=== PATIENT | female | born 1930 | race Caucasian/White ===

== ENCOUNTER 2016-04-23 17:52 | Observation (INO) | payer MEDICARE ==
[2016-04-23 18:43] LABS: Hematocrit 41.1 % (37.0-47.0); Hemoglobin 13.6 gm/dL (12.5-16.0); Mean Cell Volume 92.8 fl (78-100); Mean Corpuscular Hemoglobin 30.7 pg (27-31); Mean Corpuscular Hgb Conc 33.1 g/dl (32-36); Mean Platelet Volume 9.5 fl (6.0-9.5); Neutrophil % 66.4 % (42-75.0); Platelet Count 131 K/mm3 (150-450); Red Blood Count 4.43 M/mm3 (4.2-5.4); Red Cell Distribution Width 11.9 % (11.5-14.0); White Blood Count 6.1 K/mm3 (4.0-10.5)
[2016-04-23 19:17] LABS: Albumin * 3.4 gm/dl (3.4-5.0); Anion Gap 7.7 mmol/L (6.8-13.8); Bilirubin, Total 0.4 mg/dL (0.0-1.1); Ca. Corrected For Albumin 9.4 mg/dL (8.4-10.2); Calcium * 9.2 mg/dL (7.9-10.9); Carbon Dioxide 33.8 mmol/L (24-32.6); Potassium 4.5 mmol/L (3.4-4.6); Total Protein 7.6 gm/dL (6.2-8.2)
--- NOTE | 2016-04-23 20:19 | ERNOTE ---
Dyspnea - Date Date of Service: 04/23/16 - General Presenting Symptoms: shortness of breath Time Seen by Provider: 04/23/16 18:12 Source: patient, family - Immun/Allergies/Home Medications Immunizations: IMMUNIZATION HX Immunizations Up to Date Yes History of Influenza Vaccine Yes Hx Pneumococcal Vaccination Yes Allergies/Adverse Reactions: Allergies No Known Allergies Allergy (Verified 10/22/15 15:49) Home Medications: HOME MEDICATIONS Apixaban [Eliquis] 5 mg PO BID 01/06/16 [Last Taken Unknown] Carvedilol [Coreg] 12.5 mg PO BID 01/06/16 [Last Taken Unknown] Cholecalciferol [Vitamin D] 2,000 unit PO BID 01/06/16 [Last Taken Unknown] Digoxin [Lanoxin] 0.125 mg PO MOWEFR 01/06/16 [Last Taken Unknown] Famotidine [Pepcid AC] 20 mg PO DAILY 01/06/16 [Last Taken Unknown] Glimepiride [Amaryl] 2 mg PO BID 01/06/16 [Last Taken Unknown] Guaifenesin/Pseudoephedrne HCl [Mucinex D ER 1,200-120 mg Tab] 1 tab PO Q12H [Last Taken Unknown] Montelukast Sodium [Singulair] 10 mg PO DAILY 01/06/16 [Last Taken Unknown] Oxybutynin Chloride [Ditropan] 5 mg PO TID 01/06/16 [Last Taken Unknown] Lisinopril [Zestril] 10 mg PO DAILY #30 tablet 01/08/16 [Last Taken Unknown] - History of Present Illness Narrative: Rachana is a 85 year old female brought to the ED by her grandchildren for shortness of breath that was first noticed yesterday. She denies any increased coughing or not feeling well. Her home health nurse even noticed today that she seemed to be more dyspneic than her usual. This has went on throughout the day and has not seemed to improve with her breathing treatments, so her family brought her in to be evaluated. She wears 2 L of oxygen at home. Her oxygen saturation is currently 95% with this. She was treated for a COPD exacerbation with a prednisone taper and ZPack on . At that time she did have increased coughing and nasal congestion with her O2 Sat being 88% in the office that day. Date (Duration): 04/22/16 Treatment PASTE UP ARTIST APPRENTICE: by patient, albuterol Initiating event: Reports: unknown, other - patient denies being short of breath but cannot speak in complete sentences Associated Symptoms-Dyspnea: Reports: wheezing. Denies: fever/chills, chest pain/discomfort, cough, leg/calf pain, ankle/leg swelling, dizziness, lightheadedness, loss of appetite Prior Treatment: Reports: previous episodes. Denies: recently seen, treated by physician, currently on antibiotics Review of Systems - Review of Systems Constitutional: Present: recent illness. Absent: fever, chills, malaise EYE: Present: no symptoms reported ENT: Present: nose congestion. Absent: ear pain, nasal drainage, sore throat Respiratory: Present: cough. Absent: orthopnea Cardiology: Absent: chest pain, edema Gastrointestinal/Abdominal: Absent: nausea, abdominal pain, eating less, drinking less Genitourinary: Present: no symptoms reported Musculoskeletal: Absent: muscle pain, joint pain Skin: Present: no symptoms reported Neurological: Absent: headache, dizziness/light-headedness Endocrine: Present: no symptoms reported Hematologic/Lymphatic: Present: no symptoms reported Psych: Present: no symptoms reported - Patient's Past Medical History Patient History - Medical: Diabetes Type 2, GERD, Renal Disease Patient History - Cardiac/Respiratory: Atrial Fibrillation - anticoagulated with Eliquis, COPD - 2-3L at HS and PRN during day , Hypertension, Other - Pulmonary Hypertension Patient History - Cancer: No Hx of Cancer Patient History - Surgical Procedures: Cataracts, Other - Carpal Tunnel, Ovarian cystectomy - Family History Mother Family History - Medical: Family History - Cardiac/Respiratory: No pertinent hx - Social History Living Situations: home Does anyone smoke in the home?: No Smoking Status: Former smoker Have you smoked in the past 12 months: No Alcohol Use: none Drug Use: none Physical Exam - Physical Exam General Appearance: Present: wd/wn, alert, mild distress Ears, Nose, Throat: Present: normal ENT inspection, hearing decreased, normal pharynx. Absent: abnormal TM (R), abnormal TM (L), sinus pain/drainage Neck: Present: normal inspection, nontender, supple Respiratory: Present: respiratory distress - mild, accessory muscle use, decreased breath sounds, expiration (prolonged) Cardiovascular/Chest: Present: regular rate, rhythm, no murmur, normal peripheral pulses Extremity Exam: Present: normal inspection, no edema Neurological Exam: Present: alert, oriented, normal mood/affect Skin Exam: Present: normal color, warm/dry ED Progress - Results and Orders Patient's Lab Results:: I have reviewed the patient's lab results. - Vital Signs Patient's Vital Signs:: I have reviewed the patient's vital signs. Vital Signs: Vital Signs 04/23/16 04/23/16 04/23/16 18:01 18:10 18:34 Temperature 36.5 C Pulse Rate 95 95 88 Respiratory 20 20 20 Rate Blood Pressure 187/115 179/122 189/108 O2 Sat by Pulse 95 96 96 Oximetry 04/23/16 04/23/16 18:43 19:26 Temperature Pulse Rate 85 96 Respiratory 20 Rate Blood Pressure 177/103 O2 Sat by Pulse 96 Oximetry - EKG EKG: NSR, nonspecific ST T wave changes EKG read: Reviewed by me - X-Ray X-Ray #1 X-Ray: chest Interpretation: Reviewed by me X-ray Comments: Mild hyperinflation consistent with COPD - essentially unchanged from previous, no acute etiology noted - Progress/Reassessment Chief Complaint: Dyspnea Progress:: Unchanged Progress Note-Subjective: 04/23/16 21:04 No improvement in dyspnea after Duoneb. Patient remains unable to speak in complete sentences. Her family reports that she is not normally dyspneic at rest. Contacted Estrella Valverde HYDROGEN PLANT OPERATOR, hospitalist regarding overnight observation stay to r/o GA. Patient's work-up is unremarkable aside from the ST changes on her EKG. Departure Clinical Impression: Acute dyspnea, COPD mixed type, Chronic renal disease, stage 3, moderately decreased glomerular filtration rate (GFR) between 30-59 mL/min/1.73 square meter - Departure Disposition: [facility] Condition: Fair Referrals: Jed Mitchell MD [Primary Care Provider] -
[2016-04-23] MEDS ORDERED: ALBUTEROL SULFATE/IPRATROPIUM 3 ML NEBU IH ONE ×2 (20:26→20:35)
--- NOTE | 2016-04-23 22:21 | HP ---
Chief Complaint - Chief Complaint Date of Service: 04/23/16 Time of Service: 22:16 Chief Complaint: ' Worsening SOB'. Source of HPI- Unreliable; pt's grandadughter [place]. History of Present Illness: Ms. Baxter is a 85-yr-old WF pt who is normally seen by a typing bookkeeper at [facility], and has her PCP there as well. Her PMH involves: A-fib, COPD, DM, HTN, CKD stage III & Memory loss. Pt was brought to the ER tonight by granddaughter due to worsening SOB. Granddaughter states that pt is "normally SOB anyway" from her advanced COPD. However, tonight they noticed that she was dyspneic at rest. She is chronically on 2 L of oxygen during the day & night. Family members were afraid that she is showing early signs of respiratory illness and so they chose to bring her to the [facility] ER. Pt denies having increasing cough, fevers & chills. Also denies n/v, diaphoresis, palpitations & chest discomfort /pain. She was recently around family members who had URI symptoms. During evaluation at the ED, the CXR findings were unremarkable. There were no derangements in the hematology and electrolyte lab work. She received nebulizer treatment in ER and that seemed to ease the SOB. Pt will be admitted under observation status for remote telemetry monitoring to rule out ACS/AZ. - Patient's Past Medical History Patient History - Medical: Diabetes Type 2, GERD, Renal Disease Patient History - Cardiac/Respiratory: Atrial Fibrillation - anticoagulated with Eliquis, COPD - 2-3L at HS and PRN during day , Hypertension, Other - Pulmonary Hypertension Patient History - Cancer: No Hx of Cancer Patient History - Surgical Procedures: Cataracts, Other - Carpal Tunnel, Ovarian cystectomy - Family History Mother Family History - Medical: Family History - Cardiac/Respiratory: No pertinent hx Father Family History - Medical: - Social History Living Situations: home Does anyone smoke in the home?: No Smoking Status: Former smoker Have you smoked in the past 12 months: No Alcohol Use: none Drug Use: none - Immunizations Immunizations Up to Date: Yes Hx Pneumococcal Vaccination: Yes History of Influenza Vaccine: Yes Review Of Systems (GEN) - Review of Systems Generalized/Overall Review: Absent: Weakness, Chills, Fever EENTM: Absent: Eye Pain, Blurred Vision, Nose Congestion, Throat Pain Respiratory: Present: Cough, Shortness of Breath. Absent: Wheezing Cardiac: Absent: Chest Pain, Edema, Palpitations Abdominal: Absent: Nausea, Vomiting, Abdominal Pain, Diarrhea Genitourinary: Absent: Burning, Itching, Urgency Musculoskeletal: Absent: Joint Pain, Back Pain, Joint Swelling Neurological: Present: Anxiety. Absent: Headache, Depressed Skin: Absent: Dryness, Lesions Endocrine: Absent: Intolerance to Cold, Intolerance to Heat, Increased Thirst Misc: All systems neg except as marked Allergies/Adverse Reactions: Allergies Allergy/AdvReac Type Severity Reaction Status Date / Time No Known Allergies Allergy Verified 04/23/16 23:43 Home Medications: HOME MEDICATIONS Apixaban [Eliquis] 5 mg PO BID 01/06/16 [Last Taken Unknown] Carvedilol [Coreg] 12.5 mg PO BID 01/06/16 [Last Taken Unknown] Cholecalciferol [Vitamin D] 2,000 unit PO BID 01/06/16 [Last Taken Unknown] Digoxin [Lanoxin] 0.125 mg PO MOWEFR 01/06/16 [Last Taken Unknown] Famotidine [Pepcid AC] 20 mg PO DAILY 01/06/16 [Last Taken Unknown] Glimepiride [Amaryl] 2 mg PO BID 01/06/16 [Last Taken Unknown] Guaifenesin/Pseudoephedrne HCl [Mucinex D ER 1,200-120 mg Tab] 1 tab PO Q12H [Last Taken Unknown] Montelukast Sodium [Singulair] 10 mg PO DAILY 01/06/16 [Last Taken Unknown] Oxybutynin Chloride [Ditropan] 5 mg PO TID 01/06/16 [Last Taken Unknown] Lisinopril [Zestril] 10 mg PO DAILY #30 tablet 01/08/16 [Last Taken Unknown] Exam - Exam Vital Signs: Vital Signs - Last Taken Temp 36.5 C 04/23/16 18:01 Pulse 95 04/23/16 21:18 Resp 24 H 04/23/16 21:18 BP 195/111 04/23/16 21:18 Pulse Ox 94 04/23/16 21:18 Constitutional: Present: Alert, Oriented x3, Cooperative, Elderly. Absent: Mild distress ENT Exam: Present: hard of hearing, dry mucous membranes. Absent: nasal congestion, nasal drainage Eye Exam: bilateral eye: normal inspection, PERRL Neck: Present: full range of motion, supple, trachea midline Back Exam: Present: no CVA tenderness Breasts: Present: Exam deferred Respiratory: Present: decreased breath sounds - throughout the Lung Andersen, accessory muscle use, No wheezing, other - One word dyspnea. Cardiovascular/Chest: Present: regular rate, rhythm, no murmur Peripheral Pulses: carotid (R): 2+, carotid (L): 2+ Abdomen: Present: Normal bowel sounds, soft, nontender /Rectal: Present: Exam deferred Extremity: Present: non-tender, no pedal edema Skin Exam: Present: warm/dry, no cyanosis Lymphatic: Present: no adenopathy Neurologic: Present: no motor/sensory deficits, alert, oriented x 3. Absent: dizzy/light-headedness Appearance: Present: impaired recent memory, impaired remote memory Eye contact: Present: cooperative, good eye contact Thoughts: Present: no apparent hallucination Diagnostic Studies: Laboratory Results WBC 6.1 K/mm3 (4.0-10.5) 04/23/16 18:40 RBC 4.43 M/mm3 (4.2-5.4) 04/23/16 18:40 Hgb 13.6 gm/dL (12.5-16.0) 04/23/16 18:40 Hct 41.1 % (37.0-47.0) 04/23/16 18:40 MCV 92.8 fl (78-100) 04/23/16 18:40 MCH 30.7 pg (27-31) 04/23/16 18:40 MCHC 33.1 g/dl (32-36) 04/23/16 18:40 RDW 11.9 % (11.5-14.0) 04/23/16 18:40 Plt Count 131 K/mm3 (150-450) L 04/23/16 18:40 MPV 9.5 fl (6.0-9.5) 04/23/16 18:40 Immature Gran % (Auto) 0.50 % (0.001-0.429) H 04/23/16 18:40 Immature Gran # (Auto) 0.03 K/mm3 (0.000-0.0310) 04/23/16 18:40 Neutrophils % 66.4 % (42-75.0) 04/23/16 18:40 Lymphocytes % 24.5 % (20-51) 04/23/16 18:40 Monocytes % 6.3 % (0.0-9) 04/23/16 18:40 Eosinophils % 2.0 % (0.0-3.0) 04/23/16 18:40 Basophils % 0.3 % (0.0-1.0) 04/23/16 18:40 Nucleated RBC % 0.0 k/mm3 (0-1) 04/23/16 18:40 Neutrophils # 4.0 K/mm3 (1.3-6.0) 04/23/16 18:40 Lymphocytes # 1.5 k/mm3 (1.5-3.5) 04/23/16 18:40 Monocytes # 0.4 k/mm3 (0.0-1.0) 04/23/16 18:40 Eosinophils # 0.1 k/mm3 (0.0-0.7) 04/23/16 18:40 Absolute Basophils 0.0 k/mm3 (0.0-0.1) 04/23/16 18:40 Sodium 135 mmol/L (132-142) 04/23/16 18:35 Plasma Sodium 136 mmol/L (130-142) 04/23/16 18:35 Potassium 4.5 mmol/L (3.4-4.6) 04/23/16 18:35 Chloride 98 mmol/L (97-106) 04/23/16 18:35 Carbon Dioxide 33.8 mmol/L (24-32.6) H 04/23/16 18:35 Anion Gap 7.7 mmol/L (6.8-13.8) 04/23/16 18:35 BUN 12 mg/dL (3-23) 04/23/16 18:35 Creatinine 1.00 mg/dL (0.4-1.4) 04/23/16 18:35 Est GFR (Non-Af Amer) 56 mL/min (60-130) L 04/23/16 18:35 BUN/Creatinine Ratio 12.0 (9.0-21.6) 04/23/16 18:35 Random Glucose 171 mg/dL (70-110) H 04/23/16 18:35 Calcium 9.2 mg/dL (7.9-10.9) 04/23/16 18:35 Calcium Adj for Albumin 9.4 mg/dL (8.4-10.2) 04/23/16 18:35 Total Bilirubin 0.4 mg/dL (0.0-1.1) 04/23/16 18:35 AST 21 U/L (0-48) 04/23/16 18:35 ALT 15 U/L (19-67) L 04/23/16 18:35 Alkaline Phosphatase 78 U/L (50-170) 04/23/16 18:35 Troponin I 0.031 ng/ml (0.00-0.10) 04/23/16 19:42 B-Natriuretic Peptide 3131 pg/mL (5-550) H 04/23/16 18:35 Total Protein 7.6 gm/dL (6.2-8.2) 04/23/16 18:35 Albumin 3.4 gm/dl (3.4-5.0) 04/23/16 18:35 Assessment/Plan - Assessment/Plan (1) Chest pain, rule out acute myocardial infarction Assessment: She will be admitted under observation status for telemetry monitoring to rule out AZ/ACS. The first EKG and troponin did not any concerns of AZ. Will monitor serial troponins and repeat EKG. Will be discharged home tomorrow should the results come back negative. Problem: Acute (2) COPD (chronic obstructive pulmonary disease) Assessment: The chest x-ray did not have any acute findings. During physical examination, there are no exp/ins. wheezing of the LS. Family members say she is less SOB compared to when she first arrived to the ER. Will give scheduled DuoNeb treatments. Problem: Chronic (3) HTN (hypertension) Problem: Chronic Qualifiers: Hypertension type: essential hypertension Qualified Code(s): I10 - Essential (primary) hypertension (4) Diabetes mellitus type II, controlled Problem: Chronic
[2016-04-23] MEDS: ALBUTEROL SULFATE/IPRATROPIUM 3 ML NEBU IH SCH (23:22)
[2016-04-23] MEDS ORDERED: hydrALAZINE HCL 50 MG TABLET PO SCH (23:30)
[2016-04-23] MEDS ORDERED: hydrALAZINE HCL 25 MG TABLET ONE (23:57)
[2016-04-24] MEDS: ALBUTEROL SULFATE/IPRATROPIUM 3 ML NEBU IH SCH ×3 (02:06→10:25)
[2016-04-24] MEDS ORDERED: hydrALAZINE HCL 50 MG TABLET PO SCH (07:30)
--- NOTE | 2016-04-24 08:47 | DS ---
(1) Chest pain, rule out acute myocardial infarction Problem: Resolved (2) COPD (chronic obstructive pulmonary disease) Problem: Chronic Qualifiers: COPD type: chronic bronchitis Chronic bronchitis type: unspecified Qualified Code(s): J42 - Unspecified chronic bronchitis (3) HTN (hypertension) Problem: Chronic Qualifiers: Hypertension type: essential hypertension Qualified Code(s): I10 - Essential (primary) hypertension Description of Stay: Rachana Baxter is a 85-yr-old WF , patient of Dr. Mitchell, with PMH of A-fib, COPD, DM, HTN, CKD stage III & Memory loss. Pt was brought to the ER 04/23/2016 by granddaughter due to worsening SOB. Granddaughter states that pt is "normally SOB anyway" from her advanced COPD. However, tonight they noticed that she was dyspneic at rest. She is chronically on 2 L of oxygen during the day & night. Family members were afraid that she is showing early signs of respiratory illness and so they chose to bring her to the [facility] ER. Pt denied having increasing cough, fevers & chills. Also denied n/v, diaphoresis, palpitations & chest discomfort/pain. She was recently around family members who had URI symptoms. During evaluation at the ED, the CXR findings were unremarkable. There were no derangements in the hematology and electrolyte lab work. She received nebulizer treatment in ER and that seemed to ease the SOB. Pt was admitted to rule out CT as per MEDIA RELATIONS DIRECTOR notes she complained of CP on her ROS. She ruled out f0r AMI. She is wanting to go home today. Procedures Performed: none Discharge Disposition: Home self care Disposition: Home self-care Condition: Fair Discharge Diet: Consistent carbs Referrals: Jed Mitchell MD [Primary Care Provider] - Problem Oriented Discharge Instructions to Patient/Family: Chronic Obstructive Pulmonary Disease Exacerbation, [id number], Chest Pain Observation Additional Patient Instructions (free text): Please fax discharge instructions and medications to [facility] at discharge. follow up with her PCP- Dr. Mitchell in 1 week. Complete Home Medications List: Complete Home Medication List: Apixaban [Eliquis] 5 mg PO BID 01/06/16 Carvedilol [Coreg] 12.5 mg PO BID 01/06/16 Cholecalciferol [Vitamin D] 2,000 unit PO BID 01/06/16 Digoxin [Lanoxin] 0.125 mg PO MOWEFR 01/06/16 Famotidine [Pepcid AC] 20 mg PO DAILY 01/06/16 Glimepiride [Amaryl] 2 mg PO BID 01/06/16 Guaifenesin/Pseudoephedrne HCl [Mucinex D ER 1,200-120 mg Tab] 1 tab PO Q12H Montelukast Sodium [Singulair] 10 mg PO DAILY 01/06/16 Oxybutynin Chloride [Ditropan] 5 mg PO BID 01/06/16 Albuterol Sulfate [Albuterol Sulfate 2.5 MG/0.5ML] 1 vial IH Q6H PRN 04/24/16 Brimonidine Tartrate [Alphagan-P 0.1% Ophthalmic Solution] 1 drop OP BID Fluticasone Propionate [Flovent Diskus] 50 mcg IH BID 04/24/16 Multivitamins [Multivitamin John] 1 cap PO DAILY 04/24/16
[2016-04-24] MEDS ORDERED: CARVEDILOL 12.5 MG TABLET PO SCH (09:00)
[2016-04-24] MEDS ORDERED: APIXABAN 2.5 MG TABLET PO SCH (09:00)
[2016-04-24] MEDS ORDERED: GLIMEPIRIDE 2 MG TABLET PO SCH (09:00)
[2016-04-24] MEDS ORDERED: MONTELUKAST SODIUM 10 MG TABLET PO SCH (09:00)
[2016-04-24] MEDS ORDERED: FAMOTIDINE 20 MG TABLET PO SCH (09:00)
[2016-04-24] MEDS ORDERED: PSEUDOEPHEDRNE HCL PO SCH (09:00)
[2016-04-24] MEDS ORDERED: GUAIFENESIN PO SCH (09:00)
[2016-04-24] MEDS ORDERED: LISINOPRIL 10 MG TABLET PO SCH (09:00)
[2016-04-24] MEDS ORDERED: OXYBUTYNIN CHLORIDE 5 MG TABLET PO SCH (09:00)
[2016-04-24] MEDS ORDERED: CHOLECALCIFEROL 1,000 UNIT CAPSULE PO SCH (09:00)
[2016-04-24 09:54] VITALS: BP 158/110
[2016-04-26] MEDS ORDERED: DIGOXIN 0.125 MG TABLET PO SCH (09:00)
== END 2016-04-24 11:58 | disposition home or self-care (01) ==
LOC: ER 17:52 → MS 21:15
PROVIDERS: ADMIT Nurse Practitioner; ATTEND Internal Medicine
DX: J42 Unspecified chronic bronchitis (principal); I10 Essential (primary) hypertension
CPT/HCPCS: 36415; 71020; 80053; 83880; 84484; 85025; 87040; 93005; 94640; 94760; 99283; G0378

== ENCOUNTER 2016-10-26 20:27 | Emergency (ER) | payer MEDICARE ==
--- NOTE | 2016-10-26 21:29 | ERNOTE ---
Lower Extremity HPI - General Lower Extremities Pain: hip: bilateral Time Seen by Provider: 10/26/16 21:07 Source: patient, family Exam Limitations: hard of hearing - Immun/Allergies/Home Medications Immunizations: IMMUNIZATION HX Immunizations Up to Date Yes History of Influenza Vaccine Yes Hx Pneumococcal Vaccination Yes Allergies/Adverse Reactions: Allergies Allergy/AdvReac Type Severity Reaction Status Date / Time No Known Allergies Allergy Verified 04/23/16 23:43 Home Medications: HOME MEDICATIONS Apixaban [Eliquis] 5 mg PO BID 01/06/16 [Last Taken Unknown] Carvedilol [Coreg] 12.5 mg PO BID 01/06/16 [Last Taken Unknown] Cholecalciferol [Vitamin D] 2,000 unit PO DAILY 01/06/16 [Last Taken Unknown] Digoxin [Lanoxin] 0.125 mg PO MOWEFR 01/06/16 [Last Taken Unknown] Famotidine [Pepcid AC] 20 mg PO DAILY 01/06/16 [Last Taken Unknown] Glimepiride [Amaryl] 2 mg PO BID 01/06/16 [Last Taken Unknown] Montelukast Sodium [Singulair] 10 mg PO DAILY 01/06/16 [Last Taken Unknown] Oxybutynin Chloride [Ditropan] 5 mg PO BID 01/06/16 [Last Taken Unknown] Albuterol Sulfate [Albuterol Sulfate 2.5 MG/0.5ML] 1 vial IH Q6H PRN 04/24/16 [ Last Taken Unknown] Brimonidine Tartrate [Alphagan-P 0.1% Ophthalmic Solution] 1 drop OP BID [Last Taken Unknown] Fluticasone Propionate [Flovent Diskus] 50 mcg IH BID 04/24/16 [Last Taken Unknown] Multivitamins [Multivitamin John] 1 cap PO DAILY 04/24/16 [Last Taken Unknown] Salmeterol Xinafoate [Serevent Diskus] 50 mcg IH BID 10/04/16 [Last Taken Unknown] Travoprost [Travatan Z] 1 drop OP HS 10/04/16 [Last Taken Unknown] Umeclidinium [place] [Incruse Ellipta] 62.5 mcg IH DAILY 10/04/16 [Last Taken Unknown] Cephalexin Monohydrate [Keflex] 500 mg PO QID #40 cap 10/27/16 [Last Taken Unknown] Furosemide [Lasix] 40 mg PO DAILY #5 tablet 10/27/16 [Last Taken Unknown] - History of Present Illness Narrative: Pt has increased swelling in both legs over the past two days. She has psoriasis and right lateral leg had psoriasis break out that is now blistered and crusting. Left leg worsening as well. Occurred: yesterday Method of Injury: Reports: no apparent injury Associated Symptoms: Denies: chest pain Review of Systems - Review of Systems Constitutional: Absent: recent illness, fever EYE: Present: no symptoms reported ENT: Present: no symptoms reported Respiratory: Present: cough - usual for her COPD but has colored sputum today Cardiology: Present: no symptoms reported Gastrointestinal/Abdominal: Present: no symptoms reported Genitourinary: Present: no symptoms reported Musculoskeletal: Present: no symptoms reported Skin: Present: See HPI Neurological: Present: no symptoms reported Endocrine: Present: no symptoms reported Hematologic/Lymphatic: Present: no symptoms reported - Patient's Past Medical History Patient History - Medical: Diabetes Type 2, GERD, Renal Disease Patient History - Cardiac/Respiratory: Atrial Fibrillation, CHF, COPD, Hypertension, Pneumonia, Home O2 Use Patient History - Cancer: No Hx of Cancer Patient History - Surgical Procedures: Cataracts, Other Patient History - Other: None - Family History Mother Family History - Medical: Family History - Cardiac/Respiratory: No pertinent hx Father Family History - Medical: - Social History Living Situations: home Abuse History: No History of abuse Psych History: No pertinent hx Does anyone smoke in the home?: No Smoking Status: Never smoker Have you smoked in the past 12 months: No Alcohol Use: none Drug Use: none - Immunizations Immunizations Up to Date: Yes Hx Pneumococcal Vaccination: Yes History of Influenza Vaccine: Yes Physical Exam - Physical Exam General Appearance: Present: wd/wn, alert, no apparent distress Head Exam: Present: normal inspection, no evidence of injury Ears, Nose, Throat: Present: normal ENT inspection Neck: Present: normal inspection, supple Respiratory: Present: no respiratory distress, decreased breath sounds - bilateral with poor air movement, expiration (prolonged) Cardiovascular/Chest: Present: regular rate, rhythm, no murmur Extremity Exam: Present: extremity edema - 1-2+ pretibial edema bilateral Neurological Exam: Present: alert, oriented, normal mood/affect Skin Exam: Present: other - right leg laterally has large area of pustules and crusting. right medial maleolus has dry wound with some scab. left leg has small ulcer mid tibia with yellow/green exudate, minimal surrounding erythema Lymphatic Exam: Present: no adenopathy ED Progress - Results and Orders Patient's Lab Results:: I have reviewed the patient's lab results. Results and Orders: Laboratory Tests 10/26/16 10/26/16 10/26/16 21:45 21:45 21:45 WBC 6.2 Hgb 12.2 L Hct 37.2 Plt Count 164 D-Dimer 1.13 H Sodium 133 Potassium 4.5 Chloride 96 L Carbon Dioxide 37.2 H Anion Gap 4.3 L BUN 10 Creatinine 0.82 BUN/Creatinine Ratio 12.2 Random Glucose 84 Calcium 9.0 Calcium Adj for Albumin 9.3 Total Bilirubin 0.4 AST 19 ALT 13 L Alkaline Phosphatase 79 B-Natriuretic Peptide 2357 H Total Protein 8.3 H Albumin 3.2 L - Vital Signs Patient's Vital Signs:: I have reviewed the patient's vital signs. Vital Signs: Vital Signs 10/26/16 20:33 Temperature 36.6 C Pulse Rate 77 Respiratory 16 Rate Blood Pressure 176/90 O2 Sat by Pulse 90 Oximetry - X-Ray X-Ray #1 X-Ray: chest Interpretation: Reviewed by me X-ray Comments: possible infiltrate in the RLL, correlate clinically. Pacemaker, COPD. - CT/Ultrasound CT/Ultrasound Narrative: LLE venous doppler showed no evidence for DVT. - Progress/Reassessment Chief Complaint: Lower Extremity Pain/ Injury Progress:: Unchanged Departure Clinical Impression: Edema extremities Cellulitis Qualifiers: Site of cellulitis: extremity Site of cellulitis of extremity: lower extremity Laterality: right Qualified Code(s): L03.115 - Cellulitis of right lower limb - Departure Disposition: Home Follow Up Needed Condition: Good Instructions: Peripheral Edema Additional Instructions: See Dr. Mitchell in 7-10 days or sooner if worsening Referrals: Jed Mitchell MD [Staff Physician] - Prescriptions: Cephalexin Monohydrate [Keflex] 500 mg PO QID #40 cap Furosemide [Lasix] 40 mg PO DAILY #5 tablet
[2016-10-26 21:48] LABS: Hematocrit 37.2 % (37.0-47.0); Hemoglobin 12.2 gm/dL (12.5-16.0); Mean Cell Volume 91.4 fl (78-100); Mean Corpuscular Hgb Conc 32.8 g/dl (32-36); Neutrophil # 4.3 K/mm3 (1.3-6.0); Neutrophil % 69.5 % (42-75.0); Platelet Count 164 K/mm3 (150-450); Red Blood Count 4.07 M/mm3 (4.2-5.4); Red Cell Distribution Width 12.4 % (11.5-14.0); White Blood Count 6.2 K/mm3 (4.0-10.5)
[2016-10-26 22:05] LABS: Albumin * 3.2 gm/dl (3.4-5.0); Anion Gap 4.3 mmol/L (6.8-13.8); BUN/Creatinine Ratio 12.2 (9.0-21.6); Bilirubin, Total 0.4 mg/dL (0.0-1.1); Ca. Corrected For Albumin 9.3 mg/dL (8.4-10.2); Carbon Dioxide 37.2 mmol/L (24-32.6); Potassium 4.5 mmol/L (3.4-4.6); Total Protein 8.3 gm/dL (6.2-8.2)
[2016-10-27] MEDS ORDERED: FUROSEMIDE 40 MG TABLET PO ONE (01:27)
[2016-10-27] MEDS ORDERED: FUROSEMIDE 40 MG TABLET ONE (01:29)
[2016-10-27] MEDS ORDERED: CEPHALEXIN MONOHYDRATE 250 MG CAPSULE PO ONE (01:37)
[2016-10-27] MEDS ORDERED: CEPHALEXIN MONOHYDRATE 250 MG CAPSULE ONE (01:37)
[2016-10-27 01:45] VITALS: BP 162/67
== END 2016-10-27 01:43 | disposition home or self-care (01) ==
LOC: ER 20:27
DX: R60.0 Localized edema (principal); L03.115 Cellulitis of right lower limb; Z95.0 Presence of cardiac pacemaker; J44.9 Chronic obstructive pulmonary disease, unspecified

== ENCOUNTER 2016-11-04 23:35 | Inpatient (IN) | payer MEDICARE ==
--- NOTE | 2016-11-04 23:58 | ERNOTE ---
Medical Problem HPI - Narrative Date of Service: 11/04/16 - 4755 - General Chief Complaint: General Assessment Time Seen by Provider: 11/04/16 23:45 Source: patient, family - Immun/Allergies/Home Medications Immunizations: IMMUNIZATION HX Immunizations Up to Date Yes History of Influenza Vaccine Yes Hx Pneumococcal Vaccination Yes Allergies/Adverse Reactions: Allergies diphenhydramine [From Benadryl] Adverse Reaction (Mild, Verified 11/06/16 14:38) Other Twitching; mentality changes Home Medications: HOME MEDICATIONS Apixaban [Eliquis] 5 mg PO BID 01/06/16 [Last Taken Unknown] Carvedilol [Coreg] 12.5 mg PO BID 01/06/16 [Last Taken Unknown] Cholecalciferol [Vitamin D] 2,000 unit PO DAILY 01/06/16 [Last Taken Unknown] Digoxin [Lanoxin] 0.125 mg PO MOWEFR 01/06/16 [Last Taken Unknown] Famotidine [Pepcid AC] 20 mg PO DAILY 01/06/16 [Last Taken Unknown] Glimepiride [Amaryl] 2 mg PO DAILY 01/06/16 [Last Taken Unknown] Montelukast Sodium [Singulair] 10 mg PO DAILY 01/06/16 [Last Taken Unknown] Oxybutynin Chloride [Ditropan] 5 mg PO BID 01/06/16 [Last Taken Unknown] Albuterol Sulfate [Albuterol Sulfate 2.5 MG/0.5ML] 1 vial IH QID PRN 04/24/16 [ Last Taken Unknown] Brimonidine Tartrate [Alphagan-P 0.1% Ophthalmic Solution] 1 drop OP BID [Last Taken Unknown] Fluticasone Propionate [Flovent Diskus] 50 mcg IH DAILY 04/24/16 [Last Taken Unknown] Multivitamins [Multivitamin John] 1 cap PO DAILY 04/24/16 [Last Taken Unknown] Salmeterol Xinafoate [Serevent Diskus] 50 mcg IH BID 10/04/16 [Last Taken Unknown] Travoprost [Travatan Z] 1 drop OP HS 10/04/16 [Last Taken Unknown] Umeclidinium [place] [Incruse Ellipta] 62.5 mcg IH DAILY 10/04/16 [Last Taken Unknown] Furosemide [Lasix] 40 mg PO DAILY #5 tablet 10/27/16 [Last Taken Unknown] Balsam [place] Oil [Venelex Ointment] 1 appl TP BID 11/05/16 [Last Taken Unknown] Famotidine [Pepcid] 20 mg PO DAILY 11/05/16 [Last Taken Unknown] Hydrophilic Ointment [Aquaphilic Ointment] 1 appl TP BID 11/05/16 [Last Taken Unknown] Levalbuterol Tartrate [Xopenex Hfa] 2 puff IH Q4H 11/05/16 [Last Taken Unknown] Spironolactone [Aldactone] 12.5 mg PO DAILY 11/05/16 [Last Taken Unknown] guaiFENesin [Mucinex] 1,200 mg PO BID 11/05/16 [Last Taken Unknown] - Narrative Narrative: Past medical history past social history family history social history medications and allergies were reviewed. - Patient's Past Medical History Patient History - Medical: Diabetes Type 2, GERD, Renal Disease Patient History - Cardiac/Respiratory: Atrial Fibrillation, CHF, COPD, Hypertension, Pneumonia, Home O2 Use Patient History - Cancer: No Hx of Cancer Patient History - Surgical Procedures: Cataracts, Other Patient History - Other: None - Family History Mother Family History - Medical: Family History - Cardiac/Respiratory: No pertinent hx Father Family History - Medical: - Social History Living Situations: home Abuse History: No History of abuse Psych History: No pertinent hx Does anyone smoke in the home?: No Smoking Status: Never smoker Alcohol Use: none Drug Use: none - Immunizations Immunizations Up to Date: Yes Hx Pneumococcal Vaccination: Yes History of Influenza Vaccine: Yes Physical Exam - Physical Exam General Appearance: Present: wd/wn, alert, moderate distress - due to pain Head Exam: Present: normal inspection, no evidence of injury, tenderness - on left hip greater trochanter Eye Exam: Normal inspection: bilateral, PERRL: bilateral, EOMI: bilateral Ears, Nose, Throat: Present: normal ENT inspection, normal pharynx Neck: Present: normal inspection, nontender, other - no limitation of rom Respiratory: Present: no respiratory distress, expiration (prolonged) - due to known copd Cardiovascular/Chest: Present: regular rate, rhythm, no murmur, normal peripheral pulses Peripheral Pulses: N=norm/S=strong/W=weak/B=bound/A=absent: Carotid (R): Normal , Carotid (L): Normal, Dorsalis-pedis (R): Normal, Dorsalis-pedis (L): Normal Gastrointestinal/Abdominal: Present: normal bowel sounds, nontender, nondistended, no organomegaly Rectal Exam: Present: deferred Back Exam: Present: normal inspection, normal range of motion, no CVA tenderness , no vertebral tenderness Extremity Exam: Present: normal inspection, decreased range of motion - left hip painful to palpation greater trochanter. DTR: N=norm/NB=norm/brisk/A=abs/DD=dull/dimin/HC=hyperactive: Knee (R): Normal, Knee (L): Normal, Ankle (R): Normal, Ankle (L): Normal Lymphatic Exam: Present: no adenopathy Pelvic Exam: Present: deferred ED Progress - Results and Orders Patient's Lab Results:: I have reviewed the patient's lab results. Results and Orders: Laboratory Tests 11/05/16 11/05/16 11/05/16 00:00 00:00 00:01 WBC 11.3 H RBC 4.21 Hgb 12.4 L Hct 36.8 L MCV 87.4 MCH 29.5 Neutrophils # 9.5 H Lymphocytes # 1.2 L Monocytes # 0.4 PT 12.0 H INR (Anticoag Therapy) 1.15 H Sodium 125 L Potassium 4.9 H Chloride 87 L Carbon Dioxide 34.3 H Anion Gap 8.6 BUN 22 D Creatinine 1.16 Est GFR (Non-Af Amer) 47 L D BUN/Creatinine Ratio 19.0 Random Glucose 149 H Calcium 8.7 Calcium Adj for Albumin 8.8 Total Bilirubin 0.4 AST 32 ALT 15 L Alkaline Phosphatase 81 Troponin I Less than 0.017 Total Protein 8.1 Albumin 3.5 Urine Color Urine Appearance Urine pH Ur Specific Gray Urine Protein Urine Glucose (UA) Urine Ketones Urine Blood Urine Nitrate Urine Bilirubin Urine Urobilinogen Ur Leukocyte Esterase Urine RBC Urine WBC Ur Epithelial Cells Urine Culture Comments 11/05/16 03:34 WBC RBC Hgb Hct MCV MCH Neutrophils # Lymphocytes # Monocytes # PT INR (Anticoag Therapy) Sodium Potassium Chloride Carbon Dioxide Anion Gap BUN Creatinine Est GFR (Non-Af Amer) BUN/Creatinine Ratio Random Glucose Calcium Calcium Adj for Albumin Total Bilirubin AST ALT Alkaline Phosphatase Troponin I Total Protein Albumin Urine Color Yellow Urine Appearance Clear Urine pH 6.5 Ur Specific Gray 1.010 Urine Protein Negative Urine Glucose (UA) Negative Urine Ketones Negative Urine Blood Negative Urine Nitrate Negative Urine Bilirubin Negative Urine Urobilinogen Normal Ur Leukocyte Esterase Negative Urine RBC 5-10 H Urine WBC 5-10 H Ur Epithelial Cells 0-5 Urine Culture Comments Culture to follow - Vital Signs Patient's Vital Signs:: I have reviewed the patient's vital signs. Vital Signs: Vital Signs 11/04/16 23:42 Temperature 36.6 C Pulse Rate 74 Respiratory 22 H Rate O2 Sat by Pulse 94 Oximetry - EKG EKG: NSR EKG read: Interp. by me EKG Comments: Normal ecg noted, no stemi, no ectopy - Progress/Reassessment Chief Complaint: General Assessment Progress:: Pain free at discharge - Transfer of Care Expected Disposition: Admit - patient admitted to observation to [facility]. Plan - Plan Plan: Admit to [facility] Surg : diagnosis hyponatremia, hypokalemia last glucose 117 Departure - Departure Clinical Impression: Hyponatremia, Hypoglycemia, Weakness Contusion of hip, left Qualifiers: Encounter type: initial encounter Qualified Code(s): S70.02XA - Contusion of left hip, initial encounter Fall at home Qualifiers: Encounter type: initial encounter Qualified Code(s): W19.XXXA - Unspecified fall, initial encounter; Y92.099 - Unspecified place in other non-institutional residence as the place of occurrence of the external cause Disposition: [facility] Condition: Fair
[2016-11-05 00:35] LABS: Hematocrit 36.8 % (37.0-47.0); Hemoglobin 12.4 gm/dL (12.5-16.0); Mean Cell Volume 87.4 fl (78-100); Mean Corpuscular Hemoglobin 29.5 pg (27-31); Mean Corpuscular Hgb Conc 33.7 g/dl (32-36); Mean Platelet Volume 9.2 fl (6.0-9.5); Neutrophil # 9.5 K/mm3 (1.3-6.0); Neutrophil % 84.8 % (42-75.0); Platelet Count 166 K/mm3 (150-450); Red Blood Count 4.21 M/mm3 (4.2-5.4); White Blood Count 11.3 K/mm3 (4.0-10.5)
[2016-11-05 01:02] LABS: INR 1.15 INR (0.90-1.10); Partial Thrombolplastin Time 31.6 Seconds (24-32)
[2016-11-05 01:13] LABS: ALT 15 U/L (19-67); AST 32 U/L (0-48); Albumin * 3.5 gm/dl (3.4-5.0); Alkaline Phosphatase * 81 U/L (50-170); Anion Gap 8.6 mmol/L (6.8-13.8); Bilirubin, Total 0.4 mg/dL (0.0-1.1); Blood Urea Nitrogen 22 mg/dL (3-23); Ca. Corrected For Albumin 8.8 mg/dL (8.4-10.2); Calcium * 8.7 mg/dL (7.9-10.9); Carbon Dioxide 34.3 mmol/L (24-32.6); Chloride 87 mmol/L (97-106); Glucose * 149 mg/dL (70-110); Potassium 4.9 mmol/L (3.4-4.6); Sodium 125 mmol/L (132-142); Total Protein 8.1 gm/dL (6.2-8.2); Troponin I Less than 0.017 ng/ml (0.00-0.10)
[2016-11-05] MEDS ORDERED: NORMAL SALINE 500 ML IV ONE (02:00)
[2016-11-05 03:39] LABS: Urine Bilirubin Negative (NEGATIVE); Urine Blood Negative /ul (NEGATIVE); Urine Ketone Negative (NEGATIVE); Urine Nitrite Negative (NEGATIVE); Urine Protein Negative (NEGATIVE); Urine Urobilinogen Normal (NORMAL); Urine pH 6.5 pH (5.0-7.0)
[2016-11-05 03:46] LABS: Urine Appearance Clear; Urine Bacteria 1+; Urine Color Yellow
[2016-11-05] MEDS ORDERED: NORMAL SALINE 1,000 ML IV PRN (04:08)
[2016-11-05] MEDS ORDERED: ALBUTEROL SULFATE 2.5 MG/0.5 ML VIAL.NEB IH PRN (04:12)
[2016-11-05] MEDS ORDERED: LEVALBUTEROL HCL 1.25 MG/3 ML AMPUL IH SCH (04:15)
--- NOTE | 2016-11-05 04:33 | HP ---
Chief Complaint - Chief Complaint Date of Service: 11/05/16 Time of Service: 04:05 Chief Complaint: "Fall, low blood sugar". Source of HPI- Pt; unreliable due to AMS, Daughter- Sonya, ER provider report. History of Present Illness: Mrs. Baxter is a 86-yr-old [place] pt of Dr. Jed Mitchell with a PMH of: A-fib, COPD ,DM, & HTN. Pt is not a reliable historian due to AMS & therefore the daughter Sonya, provided most of the information. She states that the pt fell down sometime after lunch. She has a Life Alert button but pt has not mastered how to use it. Sonya states that pt accidentally rolled on it alerting the EMS to her home. She was assisted back up. Family stayed with her the rest of the afternoon and noted that she had refused to eat all day. At about supper time, Sonya states that the pt was acting weird. She was picking in the air and talking to herself. There was no loss of consciousness. She pressed the pt's life alert button and the emergency squad came and found her blood sugar to be 28. She was given D50 enroute to the hospital and on arrival, Blood glucose level was up to 179. At the ED, she had several imaging studies involving Head CT, Cervical Spine CT, Hip/Pelvis X-RAY & CXR and there were no acute findings identified. Her lab-work was remarkable for Hyponatremia-125, elevated potassium -4.9, and slighly elevated WBC with a Left shift. The UA showed UTI also. Sonya denies Mrs. Baxter having any fevers,chills, n/v, abd. pain & diarrhea. She will be admitted under observation due to: Hypoglycemia, UTI & Electrolyte disturbances. - Patient's Past Medical History Patient History - Medical: Diabetes Type 2, GERD, Renal Disease Patient History - Cardiac/Respiratory: Atrial Fibrillation, CHF, COPD, Hypertension, Pneumonia, Home O2 Use Patient History - Cancer: No Hx of Cancer Patient History - Surgical Procedures: Cataracts, Other Patient History - Other: None - Family History Mother Family History - Medical: Family History - Cardiac/Respiratory: No pertinent hx Father Family History - Medical: - Social History Living Situations: home Abuse History: No History of abuse Psych History: No pertinent hx Does anyone smoke in the home?: No Smoking Status: Never smoker Alcohol Use: none Drug Use: none - Immunizations Immunizations Up to Date: Yes Hx Pneumococcal Vaccination: Yes History of Influenza Vaccine: Yes Review Of Systems (GEN) - Review of Systems Additional Comments: ROS unobtainable due to AMS. Immunizations: IMMUNIZATION HX Immunizations Up to Date Yes History of Influenza Vaccine Yes Hx Pneumococcal Vaccination Yes Allergies/Adverse Reactions: Allergies Allergy/AdvReac Type Severity Reaction Status Date / Time No Known Allergies Allergy Verified 11/05/16 03:41 Home Medications: HOME MEDICATIONS Apixaban [Eliquis] 5 mg PO BID 01/06/16 [Last Taken Unknown] Carvedilol [Coreg] 12.5 mg PO BID 01/06/16 [Last Taken Unknown] Cholecalciferol [Vitamin D] 2,000 unit PO DAILY 01/06/16 [Last Taken Unknown] Digoxin [Lanoxin] 0.125 mg PO MOWEFR 01/06/16 [Last Taken Unknown] Famotidine [Pepcid AC] 20 mg PO DAILY 01/06/16 [Last Taken Unknown] Glimepiride [Amaryl] 2 mg PO DAILY 01/06/16 [Last Taken Unknown] Montelukast Sodium [Singulair] 10 mg PO DAILY 01/06/16 [Last Taken Unknown] Oxybutynin Chloride [Ditropan] 5 mg PO BID 01/06/16 [Last Taken Unknown] Albuterol Sulfate [Albuterol Sulfate 2.5 MG/0.5ML] 1 vial IH QID PRN 04/24/16 [ Last Taken Unknown] Brimonidine Tartrate [Alphagan-P 0.1% Ophthalmic Solution] 1 drop OP BID [Last Taken Unknown] Fluticasone Propionate [Flovent Diskus] 50 mcg IH DAILY 04/24/16 [Last Taken Unknown] Multivitamins [Multivitamin John] 1 cap PO DAILY 04/24/16 [Last Taken Unknown] Salmeterol Xinafoate [Serevent Diskus] 50 mcg IH BID 10/04/16 [Last Taken Unknown] Travoprost [Travatan Z] 1 drop OP HS 10/04/16 [Last Taken Unknown] Umeclidinium [place] [Incruse Ellipta] 62.5 mcg IH DAILY 10/04/16 [Last Taken Unknown] Furosemide [Lasix] 40 mg PO DAILY #5 tablet 10/27/16 [Last Taken Unknown] Balsam [place] Oil [Venelex Ointment] 1 appl TP BID 11/05/16 [Last Taken Unknown] Famotidine [Pepcid] 20 mg PO DAILY 11/05/16 [Last Taken Unknown] Hydrophilic Ointment [Aquaphilic Ointment] 1 appl TP BID 11/05/16 [Last Taken Unknown] Levalbuterol Tartrate [Xopenex Hfa] 2 puff IH Q4H 11/05/16 [Last Taken Unknown] Spironolactone [Aldactone] 12.5 mg PO DAILY 11/05/16 [Last Taken Unknown] guaiFENesin [Mucinex] 1,200 mg PO BID 11/05/16 [Last Taken Unknown] Exam - Exam Vital Signs: Vital Signs - Last Taken Temp 36.6 C 11/04/16 23:42 Pulse 60 11/05/16 02:55 Resp 20 11/05/16 02:55 BP 145/65 11/05/16 02:55 Pulse Ox 98 11/05/16 02:55 Constitutional: Present: Alert - to self & place only., No distress, Elderly ENT Exam: Present: hard of hearing, dry mucous membranes. Absent: nasal congestion, nasal drainage Eye Exam: bilateral eye: normal inspection, PERRL Neck: Present: full range of motion, supple, normal inspection Back Exam: Present: normal inspection, no CVA tenderness Breasts: Present: Exam deferred Respiratory: Present: lungs clear, no accessory muscle use, No wheezing Cardiovascular/Chest: Present: normal peripheral pulses, regular rate, rhythm, no chest tenderness, no murmur Abdomen: Present: Normal bowel sounds, soft, nontender /Rectal: Present: Exam deferred Extremity: Present: normal range of motion, non-tender, normal inspection, lower extremity edema - + 1-2 ble pitting edema Skin Exam: Present: warm/dry, no cyanosis Lymphatic: Present: no adenopathy Neurologic: Present: no motor/sensory deficits, alert, disoriented x 3 Appearance: Present: impaired insight, impaired recent memory, impaired remote memory Eye contact: Present: good eye contact Thoughts: Present: no apparent hallucination, incoherent Diagnostic Studies: Abnormal Lab Results 11/05/16 Range/Units 03:34 Urine RBC 5-10 H (0-5) /hpf Urine WBC 5-10 H (0-5) /hpf Urine Bacteria 1+ H (NONE) Laboratory Results WBC 11.3 K/mm3 (4.0-10.5) H 11/05/16 00:00 RBC 4.21 M/mm3 (4.2-5.4) 11/05/16 00:00 Hgb 12.4 gm/dL (12.5-16.0) L 11/05/16 00:00 Hct 36.8 % (37.0-47.0) L 11/05/16 00:00 MCV 87.4 fl (78-100) 11/05/16 00:00 MCH 29.5 pg (27-31) 11/05/16 00:00 MCHC 33.7 g/dl (32-36) 11/05/16 00:00 RDW 12.0 % (11.5-14.0) 11/05/16 00:00 Plt Count 166 K/mm3 (150-450) 11/05/16 00:00 MPV 9.2 fl (6.0-9.5) 11/05/16 00:00 Immature Gran % (Auto) 0.40 % (0.001-0.429) 11/05/16 00:00 Immature Gran # (Auto) 0.05 K/mm3 (0.000-0.0310) H 11/05/16 00:00 Neutrophils % 84.8 % (42-75.0) H 11/05/16 00:00 Lymphocytes % 10.8 % (20-51) L 11/05/16 00:00 Monocytes % 3.5 % (0.0-9) 11/05/16 00:00 Eosinophils % 0.3 % (0.0-3.0) 11/05/16 00:00 Basophils % 0.2 % (0.0-1.0) 11/05/16 00:00 Nucleated RBC % 0.0 k/mm3 (0-1) 11/05/16 00:00 Neutrophils # 9.5 K/mm3 (1.3-6.0) H 11/05/16 00:00 Lymphocytes # 1.2 k/mm3 (1.5-3.5) L 11/05/16 00:00 Monocytes # 0.4 k/mm3 (0.0-1.0) 11/05/16 00:00 Eosinophils # 0.0 k/mm3 (0.0-0.7) 11/05/16 00:00 Absolute Basophils 0.0 k/mm3 (0.0-0.1) 11/05/16 00:00 PT 12.0 Seconds (9.4-11.4) H 11/05/16 00:01 INR (Anticoag Therapy) 1.15 INR (0.90-1.10) H 11/05/16 00:01 PTT ([place]) 31.6 Seconds (24-32) 11/05/16 00:01 Sodium 125 mmol/L (132-142) L 11/05/16 00:00 Plasma Sodium 126 mmol/L (130-142) L 11/05/16 00:00 Potassium 4.9 mmol/L (3.4-4.6) H 11/05/16 00:00 Chloride 87 mmol/L (97-106) L 11/05/16 00:00 Carbon Dioxide 34.3 mmol/L (24-32.6) H 11/05/16 00:00 Anion Gap 8.6 mmol/L (6.8-13.8) 11/05/16 00:00 BUN 22 mg/dL (3-23) D 11/05/16 00:00 Creatinine 1.16 mg/dL (0.4-1.4) 11/05/16 00:00 Est GFR (Non-Af Amer) 47 mL/min (60-130) L D 11/05/16 00:00 BUN/Creatinine Ratio 19.0 (9.0-21.6) 11/05/16 00:00 Random Glucose 149 mg/dL (70-110) H 11/05/16 00:00 Calcium 8.7 mg/dL (7.9-10.9) 11/05/16 00:00 Calcium Adj for Albumin 8.8 mg/dL (8.4-10.2) 11/05/16 00:00 Total Bilirubin 0.4 mg/dL (0.0-1.1) 11/05/16 00:00 AST 32 U/L (0-48) 11/05/16 00:00 ALT 15 U/L (19-67) L 11/05/16 00:00 Alkaline Phosphatase 81 U/L (50-170) 11/05/16 00:00 Troponin I Less than 0.017 ng/ml (0.00-0.10) 11/05/16 00:00 Total Protein 8.1 gm/dL (6.2-8.2) 11/05/16 00:00 Albumin 3.5 gm/dl (3.4-5.0) 11/05/16 00:00 Urine Color Yellow 11/05/16 03:34 Urine Appearance Clear 11/05/16 03:34 Urine pH 6.5 pH (5.0-7.0) 11/05/16 03:34 Ur Specific [place] 1.010 SP.GR. (1.005-1.010) 11/05/16 03:34 Urine Protein Negative mg/dL (NEGATIVE) 11/05/16 03:34 Urine Glucose (UA) Negative mg/dL (NEGATIVE) 11/05/16 03:34 Urine Ketones Negative mg/dL (NEGATIVE) 11/05/16 03:34 Urine Blood Negative /ul (NEGATIVE) 11/05/16 03:34 Urine Nitrate Negative (NEGATIVE) 11/05/16 03:34 Urine Bilirubin Negative mg/dl (NEGATIVE) 11/05/16 03:34 Urine Urobilinogen Normal EU/dl (NORMAL) 11/05/16 03:34 Ur Leukocyte Esterase Negative /ul (NEGATIVE) 11/05/16 03:34 Urine RBC 5-10 /hpf (0-5) H 11/05/16 03:34 Urine WBC 5-10 /hpf (0-5) H 11/05/16 03:34 Ur Epithelial Cells 0-5 /hpf (0-5) 11/05/16 03:34 Urine Bacteria 1+ (NONE) H 11/05/16 03:34 Urine Culture Comments Culture to follow 11/05/16 03:34 Assessment/Plan - Assessment/Plan (1) Hypoglycemia Assessment: Hypoglycemia episode was probably precipitated by lack of eating/poor appetite and taking oral glycemic medication- Glimeperide. Will hold the med. until better preprandial and postprandial blood sugars are achieved and also when her appetite improves. Problem: Acute (2) Hyponatremia Assessment: Noted to have Na of 125- likely caused by poor appetite and diuretics. Will hold spironolactone and Lasix for now. Will hydrate with IVF. Check BMP in am. Problem: Acute (3) UTI (urinary tract infection) Assessment: UA shows 1 + bacteria and WBC. Will cover with Rocephin until urine culture results. Hydrate with IVF and encourage oral fluids. CBC in am. Problem: Acute (4) Metabolic encephalopathy Assessment: Low blood sugar, dehydration- electrolyte imbalances, likey contributed to the AMS changes. Should see an improvement in mentation (delirium and confusion) as problems resolve. Problem: Acute (5) HTN (hypertension) Assessment: Stable- On coreg. Hold Lasix due to hyponatremia and poor appetite and also Spironolactone due to elevated potassium level. BMP in am Problem: Chronic Qualifiers: Hypertension type: essential hypertension Qualified Code(s): I10 - Essential (primary) hypertension (6) Atrial fibrillation Assessment: Stable- Place on remote telemetry monitoring. Continue Digoxin & Eliquis. Problem: Chronic Qualifiers: Atrial fibrillation type: chronic Qualified Code(s): I48.2 - Chronic atrial fibrillation (7) COPD (chronic obstructive pulmonary disease) Assessment: Stable- Continue O2 supplementation and maintenance inhalers Problem: Chronic Qualifiers: COPD type: chronic bronchitis Chronic bronchitis type: unspecified Qualified Code(s): J42 - Unspecified chronic bronchitis
[2016-11-05 04:58] LABS: Hematocrit 36.7 % (37.0-47.0); Hemoglobin 12.3 gm/dL (12.5-16.0); Mean Cell Volume 88.2 fl (78-100); Mean Corpuscular Hemoglobin 29.6 pg (27-31); Mean Corpuscular Hgb Conc 33.5 g/dl (32-36); Mean Platelet Volume 8.7 fl (6.0-9.5); Neutrophil # 8.6 K/mm3 (1.3-6.0); Neutrophil % 82.2 % (42-75.0); Platelet Count 171 K/mm3 (150-450); Red Blood Count 4.16 M/mm3 (4.2-5.4); White Blood Count 10.4 K/mm3 (4.0-10.5)
[2016-11-05 05:20] LABS: Anion Gap 9.5 mmol/L (6.8-13.8); BUN/Creatinine Ratio 18.9 (9.0-21.6); Calcium * 8.6 mg/dL (7.9-10.9); Carbon Dioxide 33.3 mmol/L (24-32.6); Estimated Creat Clear 26.4; Potassium 4.8 mmol/L (3.4-4.6)
[2016-11-05] MEDS: BUDESONIDE 0.5 MG/2 ML VIAL.NEB IH SCH ×2 (06:59→18:20)
[2016-11-05] MEDS: LEVALBUTEROL HCL 1.25 MG/3 ML AMPUL IH SCH ×5 (07:31→22:39)
[2016-11-05] MEDS ORDERED: FUROSEMIDE 40 MG TABLET PO SCH (09:00)
[2016-11-05] MEDS ORDERED: FAMOTIDINE 20 MG TABLET PO SCH (09:00)
[2016-11-05] MEDS: CARVEDILOL 12.5 MG TABLET PO SCH ×2 (10:42→20:42)
[2016-11-05] MEDS: OXYBUTYNIN CHLORIDE 5 MG TABLET PO SCH ×2 (10:43→20:42)
[2016-11-05] MEDS: BRIMONIDINE TARTRATE 50 DROP BTL OP SCH ×2 (10:43→20:40)
[2016-11-05] MEDS: DIGOXIN 0.125 MG TABLET PO SCH (10:43)
[2016-11-05] MEDS: MONTELUKAST SODIUM 10 MG TABLET PO SCH (10:43)
[2016-11-05] MEDS: FAMOTIDINE 20 MG TABLET PO SCH (10:43)
[2016-11-05] MEDS: CHOLECALCIFEROL 1,000 UNIT CAPSULE PO SCH (10:43)
[2016-11-05] MEDS: MULTIVITAMINS 1 CAP CAPSULE PO SCH (10:43)
[2016-11-05] MEDS: APIXABAN 2.5 MG TABLET PO SCH ×2 (10:43→20:41)
[2016-11-05] MEDS: HYDROPHILIC OINTMENT 454 APPL JAR TP SCH ×2 (10:46→20:48)
[2016-11-05] MEDS: TRAVOPROST 25 DROP BTL OP SCH (20:43)
[2016-11-06] MEDS: LEVALBUTEROL HCL 1.25 MG/3 ML AMPUL IH SCH ×6 (03:06→23:52)
[2016-11-06 06:08] LABS: Albumin * 3.5 gm/dl (3.4-5.0); Anion Gap 7.9 mmol/L (6.8-13.8); BUN/Creatinine Ratio 16.1 (9.0-21.6); Bilirubin, Total 0.5 mg/dL (0.0-1.1); Calcium * 8.9 mg/dL (7.9-10.9); Carbon Dioxide 32.8 mmol/L (24-32.6); Potassium 4.7 mmol/L (3.4-4.6); Total Protein 7.9 gm/dL (6.2-8.2)
[2016-11-06] MEDS: BUDESONIDE 0.5 MG/2 ML VIAL.NEB IH SCH ×2 (06:10→20:04)
[2016-11-06] MEDS: CARVEDILOL 12.5 MG TABLET PO SCH ×2 (09:35→20:17)
[2016-11-06] MEDS: FAMOTIDINE 20 MG TABLET PO SCH (09:35)
[2016-11-06] MEDS: APIXABAN 2.5 MG TABLET PO SCH ×2 (09:35→20:17)
[2016-11-06] MEDS: OXYBUTYNIN CHLORIDE 5 MG TABLET PO SCH ×2 (09:35→20:17)
[2016-11-06] MEDS: CHOLECALCIFEROL 1,000 UNIT CAPSULE PO SCH (09:35)
[2016-11-06] MEDS: MONTELUKAST SODIUM 10 MG TABLET PO SCH (09:35)
[2016-11-06] MEDS: BRIMONIDINE TARTRATE 50 DROP BTL OP SCH ×2 (09:36→20:14)
[2016-11-06] MEDS: HYDROPHILIC OINTMENT 454 APPL JAR TP SCH ×2 (09:37→20:14)
[2016-11-06] MEDS: MULTIVITAMINS 1 CAP CAPSULE PO SCH (09:45)
--- NOTE | 2016-11-06 09:53 | PN ---
Subjective - Date and Time Seen Date: 11/06/16 Time: 09:47 Subjective Narrative: Patient is more awake. As per grandaughter this is almost her baseline mentation now. Objective - Review of Systems Misc: All systems neg except as marked - ROS is unreliable - Vitals Vitals: Last Vital Signs Temp 36.6 C 11/06/16 06:50 Pulse 75 11/06/16 09:35 Resp 16 11/06/16 06:50 BP 141/81 11/06/16 09:35 Pulse Ox 92 11/06/16 06:50 - Abnormal Lab Findings Abnormal Lab Findings: Abnormal Lab Results 11/06/16 Range/Units 05:40 Sodium 125 L (132-142) mmol/L Plasma Sodium 125 L (130-142) mmol/L Potassium 4.7 H (3.4-4.6) mmol/L Chloride 89 L (97-106) mmol/L Carbon Dioxide 32.8 H (24-32.6) mmol/L Est GFR (Non-Af Amer) 49 L (60-130) mL/min Random Glucose 122 H D (70-110) mg/dL ALT 15 L (19-67) U/L - Exam Constitutional: Present: Alert - AAO x 2, Cooperative, Elderly, Obese ENT Exam: Present: hearing grossly normal Neck: Present: supple Breasts: Present: Exam deferred Respiratory: Present: decreased breath sounds, No rales, No wheezing Cardiovascular/Chest: Present: normal peripheral pulses, no JVD, no murmur, irregularly irregular Abdomen: Present: Normal bowel sounds, soft, nontender, nondistended Extremity: Present: no pedal edema, no calf tenderness Assessment/Plan - Problems/Diagnosis (1) Hypoglycemia Problem: Resolved (2) Hyponatremia Problem: Acute Narrative: likely hypovolemic , hypotonic hyponatremia. furosemide and spironolactone on hold. (3) Metabolic encephalopathy Problem: Acute Narrative: altered mental status due to metabolic encephalopathy/hypoglycemia , improved. Na is down to 125 from 127. per grandaughter almost back to her baseline.she likely has a baseline dementia. will restart NSS, (4) Weakness Problem: Acute Narrative: PT (5) HTN (hypertension) Problem: Chronic Qualifiers: Hypertension type: essential hypertension Qualified Code(s): I10 - Essential (primary) hypertension
[2016-11-06] MEDS: NORMAL SALINE 1,000 ML IV PRN ×2 (10:28→23:58)
[2016-11-06] MEDS ORDERED: ALPRAZolam 0.25 MG TABLET PO PRN (13:45)
[2016-11-06] MEDS: TRAVOPROST 25 DROP BTL OP SCH (20:16)
[2016-11-07] MEDS: LEVALBUTEROL HCL 1.25 MG/3 ML AMPUL IH SCH ×6 (02:09→23:00)
[2016-11-07] MEDS: BUDESONIDE 0.5 MG/2 ML VIAL.NEB IH SCH ×2 (06:12→18:20)
--- NOTE | 2016-11-07 06:30 | PN ---
Subjective - Date and Time Seen Date: 11/07/16 Time: 06:27 Subjective Narrative: Mrs. Baxter examined this am. Nursing report occasional restlessness. Is alert and oriented to self only. No acute events overnight. Objective - Vitals Vitals: Last Vital Signs Temp 36.4 C L 11/07/16 06:15 Pulse 84 11/07/16 06:15 Resp 16 11/07/16 06:15 BP 99/78 11/07/16 06:15 Pulse Ox 97 11/07/16 06:15 - Exam Constitutional: Present: Alert, Cooperative, Elderly ENT Exam: Present: hard of hearing Neck: Present: full range of motion, supple, normal inspection Breasts: Present: Exam deferred Respiratory: Present: decreased breath sounds, No rales, No wheezing Cardiovascular/Chest: Present: normal peripheral pulses, regular rate, rhythm, no chest tenderness, no edema Abdomen: Present: Normal bowel sounds, soft, nontender /Rectal: Present: Exam deferred Extremity: Present: normal range of motion, non-tender, normal inspection, no pedal edema Skin Exam: Present: warm/dry, no cyanosis Lymphatic: Present: no adenopathy Neurologic: Present: no motor/sensory deficits, alert Appearance: Present: impaired insight, impaired recent memory Eye contact: Present: normal speech Thoughts: Present: no apparent hallucination Assessment/Plan - Problems/Diagnosis (1) Hypoglycemia Problem: Acute Narrative: Hypoglycemia episode was probably precipitated by lack of eating/poor appetite and taking oral glycemic medication- Glimeperide. Will hold the med. until better preprandial and postprandial blood sugars are achieved and also when her appetite improves. (2) Hyponatremia Problem: Acute Narrative: Noted to have Na of 125 on DOA- likely caused by poor appetite and diuretics. Will hold spironolactone and Lasix for now. Will hydrate with IVF. Check BMP in am. 11/06- Na 125- IVF restarted. continue holding diuretics (3) Metabolic encephalopathy Problem: Acute Narrative: Low blood sugar, dehydration- electrolyte imbalances, likey contributed to the AMS changes. Should see an improvement in mentation (delirium and confusion ) as problems resolve. 11/06-per granddaughter she is almost back to her baseline. she likely has a baseline dementia. (4) HTN (hypertension) Problem: Chronic Qualifiers: Hypertension type: essential hypertension Qualified Code(s): I10 - Essential (primary) hypertension Narrative: Stable- On coreg. Hold Lasix due to hyponatremia and poor appetite and also Spironolactone due to elevated potassium level. BMP in am (5) Atrial fibrillation Problem: Chronic Qualifiers: Atrial fibrillation type: chronic Qualified Code(s): I48.2 - Chronic atrial fibrillation Narrative: (6) COPD (chronic obstructive pulmonary disease) Problem: Chronic Qualifiers: COPD type: chronic bronchitis Chronic bronchitis type: unspecified Qualified Code(s): J42 - Unspecified chronic bronchitis Narrative: Stable- Continue O2 supplementation and maintenance inhalers.
[2016-11-07 08:22] LABS: Anion Gap 6.4 mmol/L (6.8-13.8); BUN/Creatinine Ratio 15.4 (9.0-21.6); Calcium * 8.5 mg/dL (7.9-10.9); Carbon Dioxide 34.9 mmol/L (24-32.6); Estimated Creat Clear 32.2; Potassium 4.3 mmol/L (3.4-4.6)
[2016-11-07] MEDS: OXYBUTYNIN CHLORIDE 5 MG TABLET PO SCH ×2 (09:03→21:45)
[2016-11-07] MEDS: MONTELUKAST SODIUM 10 MG TABLET PO SCH (09:03)
[2016-11-07] MEDS: MULTIVITAMINS 1 CAP CAPSULE PO SCH (09:03)
[2016-11-07] MEDS: CARVEDILOL 12.5 MG TABLET PO SCH ×2 (09:03→21:45)
[2016-11-07] MEDS: FAMOTIDINE 20 MG TABLET PO SCH (09:03)
[2016-11-07] MEDS: CHOLECALCIFEROL 1,000 UNIT CAPSULE PO SCH (09:07)
[2016-11-07] MEDS: APIXABAN 2.5 MG TABLET PO SCH ×2 (09:07→21:45)
[2016-11-07] MEDS: BRIMONIDINE TARTRATE 50 DROP BTL OP SCH ×2 (09:08→21:45)
[2016-11-07] MEDS: HYDROPHILIC OINTMENT 454 APPL JAR TP SCH ×2 (09:20→21:45)
[2016-11-07] MEDS: TRAVOPROST 25 DROP BTL OP SCH (21:46)
[2016-11-08] MEDS: LEVALBUTEROL HCL 1.25 MG/3 ML AMPUL IH SCH ×6 (03:04→22:07)
[2016-11-08 05:55] LABS: Hemoglobin 13.1 gm/dL (12.5-16.0); Mean Cell Volume 91.3 fl (78-100); Mean Corpuscular Hemoglobin 29.9 pg (27-31); Mean Corpuscular Hgb Conc 32.8 g/dl (32-36); Mean Platelet Volume 8.8 fl (6.0-9.5); Neutrophil # 5.6 K/mm3 (1.3-6.0); Neutrophil % 64.2 % (42-75.0); Platelet Count 169 K/mm3 (150-450); Red Blood Count 4.38 M/mm3 (4.2-5.4); Red Cell Distribution Width 12.1 % (11.5-14.0); White Blood Count 8.7 K/mm3 (4.0-10.5)
[2016-11-08 06:04] LABS: Anion Gap 7.3 mmol/L (6.8-13.8); BUN/Creatinine Ratio 11.5 (9.0-21.6); Calcium * 9.1 mg/dL (7.9-10.9); Carbon Dioxide 35.6 mmol/L (24-32.6); Estimated Creat Clear 33.7; Potassium 4.9 mmol/L (3.4-4.6)
[2016-11-08] MEDS: BUDESONIDE 0.5 MG/2 ML VIAL.NEB IH SCH ×2 (06:15→18:15)
[2016-11-08] MEDS: HYDROPHILIC OINTMENT 454 APPL JAR TP SCH ×2 (09:57→20:14)
[2016-11-08] MEDS: CHOLECALCIFEROL 1,000 UNIT CAPSULE PO SCH (09:58)
[2016-11-08] MEDS: BRIMONIDINE TARTRATE 50 DROP BTL OP SCH ×2 (09:58→20:14)
[2016-11-08] MEDS: DIGOXIN 0.125 MG TABLET PO SCH (09:58)
[2016-11-08] MEDS: CARVEDILOL 12.5 MG TABLET PO SCH ×2 (09:58→20:11)
[2016-11-08] MEDS: MONTELUKAST SODIUM 10 MG TABLET PO SCH (09:58)
[2016-11-08] MEDS: FAMOTIDINE 20 MG TABLET PO SCH (09:58)
[2016-11-08] MEDS: APIXABAN 2.5 MG TABLET PO SCH ×2 (09:58→20:12)
[2016-11-08] MEDS: MULTIVITAMINS 1 CAP CAPSULE PO SCH (09:58)
[2016-11-08] MEDS: OXYBUTYNIN CHLORIDE 5 MG TABLET PO SCH ×2 (09:58→20:12)
[2016-11-08] MEDS ORDERED: ALBUTEROL SULFATE 2.5 MG/3 ML VIAL.NEB IH PRN (11:49)
--- NOTE | 2016-11-08 12:11 | DS ---
(1) Fall at home Problem: Acute Qualifiers: Encounter type: initial encounter Qualified Code(s): W19.XXXA - Unspecified fall, initial encounter; Y92.099 - Unspecified place in other non- institutional residence as the place of occurrence of the external cause (2) Chronic a-fib Diagnosis(s): on eliquis; s/p pacemaker placement. Problem: Chronic (3) Hypoglycemia Diagnosis(s): glimeripide decreased from 2 mg to 1 mg P daily. Problem: Acute (4) Memory deficits Problem: Chronic (5) COPD on O2 Diagnosis(s): 2L Problem: Chronic Description of Stay: DATE OF ADMISSION: 11/05/2016. DATE OF DISCHARGE: 11/09/2016. DIAGNOSTICS: CT OF HEAD; CT OF SPINE; 11/05/2016. CXR, hip and pelvic x-rays . DISCHARGE SUMMARY: Rachana Baxter a 86-year-old WF with a history of COPD on 2 L O2, chronic A. fib on Eliquis, S/P DDD placement [UZwan due to symptomatic bradycardia - 09/2016], T2DM, compensated CHF, GERD and memory deficits was brought to the ER due to confusion and falls. Patient did not eat well on the day of admission. Her rn internal medicine was absent during the remainder of the day. EMS found her blood sugar to be 28 mg/dL on arrival and patient was given an amp of D50. She had multiple radiological tests[ CTs/x-rays] as above which were normal. Na+ 125, Cl- 87 on admission. Furosemide and spironolactone were held with improvement in labs at the time of discharge. Had bacteria in urine and cultures were negative. It was felt the patient required increased level of care and at this time it was felt appropriate she would benefit from correction placement. Her POA was in agreement. Patient was transferred to an NH in a stable condition. More than 35 minutes was spent in discussing treatment options, counseling, plan of care, prognosis, reconciliation of medications, preparation and dictating discharge summary. Procedures Performed: none Results and Findings: Laboratory Tests 11/05/16 11/07/16 11/08/16 00:00 08:08 05:52 Plasma Sodium 126 L 134 137 Potassium 4.9 H 4.3 4.9 H Chloride 87 L 96 L 98 Carbon Dioxide 34.3 H 34.9 H 35.6 H BUN 22 D 14 10 Creatinine 1.16 0.91 0.87 Est GFR (Non-Af Amer) 47 L D 62 D 65 Random Glucose 149 H 147 H 142 H Calcium 8.5 9.1 Calcium Adj for Albumin 8.8 Total Bilirubin 0.4 AST 32 ALT 15 L Alkaline Phosphatase 81 Total Protein 8.1 Albumin 3.5 11/05/16 11/08/16 00:00 05:52 WBC 11.3 H 8.7 Hgb 12.4 L 13.1 Hct 36.8 L 40.0 Plt Count 166 169 11/05/16 03:34 Urine Nitrate Negative Ur Leukocyte Esterase Negative Urine RBC 5-10 H Urine WBC 5-10 H Ur Epithelial Cells 0-5 Urine Bacteria 1+ H Microbiology 11/05/16 04:45 Blood Blood Culture - Final NO GROWTH 5 DAYS 11/05/16 03:46 Urine,Catheterized Urine Culture - Final No Growth CT cervical W/O: 11/05/2016: 1. No acute osseous abnormality. 2. Extensive multilevel DJD identified. 3. Endplate spurring 4. Straightening of the normal lordosis may be due to positioning versus spasm 5. Emphysema identified within the lung apices. CT HEAD W/O: 11/05/2016: 1. No acute intracranial process directed. 2. Atrophy and chronic microvascular ischemic change of the white matter noted. 3. 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 Discharge Disposition: Other HealthCare facility Disposition: Other health care facility Condition: Undetermined Discharge Activity: Activity as tolerated Discharge Diet: Consistent carbs, Low fat/chol, High Fiber Care Home Therapy: Physicial Therapy, Occupation Therapy Problem Oriented Discharge Instructions to Patient/Family: Hypoglycemia, Easy- to-Read Additional Patient Instructions (free text): /*/Elevate legs while resting. make sure patient has a bedtime snack like Glucerna. Information on hypoglycemia. MEDICATIONS DC'D: Lanoxin/digoxin. MEDICATIONS CHANGED: Glimepiride/Amaryl 2 mg changed to 1 mg PO before breakfast. Singulair/montelukast 10 mg PO 1800 hrs. Please follow up with in 2 weeks on November 23 at 2:00pm. Prescriptions (Any new or edited meds): Glimepiride [Amaryl] 1 mg PO DAILY #.1 tablet Montelukast Sodium [Singulair] 10 mg PO DAILY@1800 #.1 tablet Complete Home Medications List: Complete Home Medication List: Apixaban [Eliquis] 5 mg PO BID 01/06/16 Carvedilol [Coreg] 12.5 mg PO BID 01/06/16 Cholecalciferol [Vitamin D] 2,000 unit PO DAILY 01/06/16 Famotidine [Pepcid AC] 20 mg PO DAILY 01/06/16 Oxybutynin Chloride [Ditropan] 5 mg PO BID 01/06/16 Albuterol Sulfate [Albuterol Sulfate 2.5 MG/0.5ML] 1 vial IH QID PRN 04/24/16 Brimonidine Tartrate [Alphagan-P 0.1% Ophthalmic Solution] 1 drop OP BID Fluticasone Propionate [Flovent Diskus] 50 mcg IH DAILY 04/24/16 Multivitamins [Multivitamin John] 1 cap PO DAILY 04/24/16 Salmeterol Xinafoate [Serevent Diskus] 50 mcg IH BID 10/04/16 Travoprost [Travatan Z] 1 drop OP HS 10/04/16 Umeclidinium [place] [Incruse Ellipta] 62.5 mcg IH DAILY 10/04/16 Furosemide [Lasix] 40 mg PO DAILY #5 tablet 10/27/16 B[place]am [place] Oil [Venelex Ointment] 1 appl TP BID 11/05/16 Hydrophilic Ointment [Aquaphilic Ointment] 1 appl TP BID 11/05/16 Levalbuterol Tartrate [Xopenex Hfa] 2 puff IH Q4H 11/05/16 Spironolactone [Aldactone] 12.5 mg PO DAILY 11/05/16 guaiFENesin [Mucinex] 1,200 mg PO BID 11/05/16 Glimepiride [Amaryl] 1 mg PO DAILY #.1 tablet 11/08/16 Montelukast Sodium [Singulair] 10 mg PO DAILY@1800 #.1 tablet 11/08/16
[2016-11-08] MEDS: TRAVOPROST 25 DROP BTL OP SCH (20:15)
[2016-11-09] MEDS: LEVALBUTEROL HCL 1.25 MG/3 ML AMPUL IH SCH ×2 (02:17→06:13)
[2016-11-09] MEDS: BUDESONIDE 0.5 MG/2 ML VIAL.NEB IH SCH (06:13)
[2016-11-09] MEDS: MONTELUKAST SODIUM 10 MG TABLET PO SCH (08:54)
[2016-11-09] MEDS: APIXABAN 2.5 MG TABLET PO SCH (08:54)
[2016-11-09] MEDS: MULTIVITAMINS 1 CAP CAPSULE PO SCH (08:55)
[2016-11-09] MEDS: OXYBUTYNIN CHLORIDE 5 MG TABLET PO SCH (08:55)
[2016-11-09] MEDS: CHOLECALCIFEROL 1,000 UNIT CAPSULE PO SCH (08:55)
[2016-11-09] MEDS: CARVEDILOL 12.5 MG TABLET PO SCH (08:55)
[2016-11-09] MEDS: FAMOTIDINE 20 MG TABLET PO SCH (08:55)
[2016-11-09] MEDS: HYDROPHILIC OINTMENT 454 APPL JAR TP SCH (08:56)
[2016-11-09] MEDS: BRIMONIDINE TARTRATE 50 DROP BTL OP SCH (08:56)
--- NOTE | 2016-11-09 10:59 | PN ---
Subjective - Date and Time Seen Date: 11/08/16 Time: 10:59 Subjective Narrative: denies any complaints. Mild confusion present. On 2L of oxygen. Mostly in the wheelchair, rarely walks. Objective - Review of Systems Generalized/Overall Review: Reports: Weakness. Denies: Chills, Fever Respiratory: Reports: Shortness of Breath - Stable. Denies: Cough Cardiac: Denies: Chest Pain, Edema Abdominal: Denies: Nausea, Vomiting - Vitals Vitals: Vital Signs Temp 36.5 C 11/09/16 08:04 Pulse 92 11/09/16 08:55 Resp 18 11/09/16 08:04 BP 141/65 11/09/16 08:55 Pulse Ox 97 11/09/16 08:04 - Abnormal Lab Findings Abnormal Lab Findings: Lab Results - Exam Constitutional: Present: Elderly, Overweight - on 2L O2 x 24 H ENT Exam: Present: hard of hearing, moist mucous membranes Neck: Present: normal inspection, trachea midline Respiratory: Present: decreased breath sounds - bilaterally in both lung hopkins.. Absent: accessory muscle use Cardiovascular/Chest: Present: regular rate, rhythm, systolic murmur. Absent: tachycardia Abdomen: Present: Normal bowel sounds, soft, nontender, nondistended, obese Extremity: Present: normal inspection, lower extremity edema - 1+ Skin Exam: Present: warm/dry, pallor Neurologic: Present: other - Alert and oriented 2 Assessment/Plan - Problems/Diagnosis (1) Electrolyte imbalance Problem: Acute Narrative: with decreased sodium and chloride which is now improved.[ Both furosemide and spironolactone have been on hold]. Labs reviewed on 11/08/2016 which were WNL. (2) Fall at home Problem: Acute Qualifiers: Encounter type: initial encounter Qualified Code(s): W19.XXXA - Unspecified fall, initial encounter; Y92.099 - Unspecified place in other non- institutional residence as the place of occurrence of the external cause Narrative: Multiple radiological studies done at admission/ER: No acute abnormalities detected. (3) Chronic a-fib Problem: Chronic Narrative: S/P DDD pacemaker in 10/06/16. on eliquis 5 mg PO BID. (4) Hypoglycemia Problem: Acute Narrative: on admission. (5) COPD not affecting current episode of care Problem: Chronic Narrative: On 2 L O2 and on multiple inhalers.
[2016-11-09 11:30] VITALS: BP 125/70
== END 2016-11-09 13:00 | disposition short-term general hospital (02) | DRG 640 ==
LOC: ER 23:35 → MS 11-05 03:22 → OBSVTOIN 11-06 10:55
PROVIDERS: ADMIT Nurse Practitioner; ATTEND Internal Medicine
DX: E87.1 Hypo-osmolality and hyponatremia (principal); G93.41 Metabolic encephalopathy; E11.649 Type 2 diabetes mellitus with hypoglycemia without coma; S70.02XA Contusion of left hip, initial encounter; W18.30XA Fall on same level, unspecified, initial encounter; Y92.009 Unspecified place in unspecified non-institutional (private) residence as the place of occurrence of the external cause; I10 Essential (primary) hypertension; E11.65 Type 2 diabetes mellitus with hyperglycemia; R53.1 Weakness; I48.2 Chronic atrial fibrillation; J42 Unspecified chronic bronchitis; Z79.01 Long term (current) use of anticoagulants; Z79.84 Long term (current) use of oral hypoglycemic drugs; Z99.81 Dependence on supplemental oxygen; Z95.0 Presence of cardiac pacemaker
CPT/HCPCS: 36415; 70450; 71010; 72125; 73502; 80048; 80053; 81001; 83880; 83930; 84484; 85025; 85610; 85652; 85730; 87040; 87081; 87086; 94640; 97116; 97162; 99285; G0378; G8978; G8979; G8980